=== PATIENT | male | born 1935 ===

== ENCOUNTER 2023-12-05 02:57 | Inpatient (IN) | payer MEDICARE ==
[2023-12-05] VITALS (24 sets, daily range): BP systolic 114–158; BP diastolic 59–93
[~2023-12-05] VITALS: Ht 172.7 cm; Wt 85.1 kg
[2023-12-05] MEDS ORDERED: CefTRIAXone Sodium 1,000 MG in NS 50 ML IV ONE (03:35)
[2023-12-05] MEDS ORDERED: Azithromycin 500 MG in NS 250 ML IV ONE (03:35)
[2023-12-05 03:39] LABS: D-Dimer, Quantitative 0.6 mg/L FEU (0.00-0.52)
[2023-12-05 03:42] LABS: Albumin, Blood 3.5 g/dL (3.4-5.0); Bilirubin, Total 0.4 mg/dL (0.1-1.0); Bun/Creatinine Ratio 18.6 (12.0-20.0); Calcium, Blood 9.1 mg/dL (8.5-10.1); Creatinine, Blood 1.13 mg/dL (0.60-1.20); Globulin, Blood 3.5 g/dL (2.2-4.0); Potassium, Blood 4.2 mmol/L (3.5-5.5)
[2023-12-05 04:15] LABS: BASOPHILS ABSOLUTE AUTO 0.02 K/mm3 (0.00-0.23); BASOPHILS PERCENT AUTO 0 % (0-2); EOSINOPHILS ABSOLUTE AUTO 0.06 K/mm3 (0.00-0.68); EOSINOPHILS PERCENT AUTO 1 % (0-6); Hematocrit 23.1 % (37.0-53.0); Hemoglobin 6.6 g/dL (13.5-17.5); IMMATURE GRAN ABSOLUTE AUTO 0.04 K/mm3 (0.00-0.10); IMMATURE GRAN PERCENT AUTO 1 % (0-1); LYMPHOCYTES ABSOLUTE AUTO 0.75 K/mm3 (0.84-5.20); LYMPHOCYTES PERCENT AUTO 9 % (21-46); MONOCYTES ABSOLUTE AUTO 0.58 K/mm3 (0.16-1.47); MONOCYTES PERCENT AUTO 7 % (4-13); Mean Corpuscular HGB 20.1 pg (26.0-34.0); Mean Corpuscular HGB Conc 28.6 g/dL (31.5-36.5); Mean Corpuscular Volume 70 fL (80-100); NEUTROPHILS ABSOLUTE AUTO 6.84 K/mm3 (1.96-9.15); NEUTROPHILS PERCENT AUTO 83 % (41-73); Platelet Count 131 K/mm3 (150-400); RDW Standard Deviation 43.5 fL (35.1-46.3); Red Blood Cell Count 3.28 M/mm3 (4.30-5.90); White Blood Cell Count 8.29 K/mm3 (4.00-11.30)
[2023-12-05] MEDS ORDERED: Pantoprazole Sodium 40 MG Injection IV ONE (05:45)
[2023-12-05] MEDS ORDERED: Nitroglycerin 0.4 MG SUBL SL PRN (05:45)
[2023-12-05] MEDS ORDERED: Ondansetron 4 MG TAB PO PRN (05:45)
[2023-12-05] MEDS ORDERED: Acetaminophen 325 MG TABLET PO PRN (05:45)
[2023-12-05] MEDS ORDERED: NS 1,000 ML IV SCH ×2 (05:50→19:00)
[2023-12-05] MEDS ORDERED: Pantoprazole Sodium 40 MG Injection IV SCH (06:00)
[2023-12-05] MEDS ORDERED: Atorvastatin 40 MG Tab PO SCH (09:00)
[2023-12-05] MEDS ORDERED: CLOP75 PO (10:33)
[2023-12-05] MEDS ORDERED: ATOR40TA PO (10:33)
[2023-12-05] MEDS ORDERED: Prinivil10 MG PO (10:34)
[2023-12-05] MEDS ORDERED: OMEP20ER PO (10:34)
[2023-12-05] MEDS ORDERED: MIRT15 PO (10:34)
[2023-12-05] MEDS ORDERED: ASPI81CH PO (10:35)
[2023-12-05] MEDS ORDERED: PARO10 PO (10:35)
[2023-12-05 12:38] LABS: Hematocrit 27.9 % (37.0-53.0); Hemoglobin 8.4 g/dL (13.5-17.5); IMMATURE RETIC FRACTION 37.2 % (2.3-16.0); RETIC HGB EQUIVALENT 18.2 pg (28.20-36.60); RETICULOCYTE ABSOLUTE 0.0498 M/mm3 (0.0200-0.1100); RETICULOCYTE COUNT PERCENT 1.32 % (0.50-2.50)
[2023-12-05 13:08] LABS: BASOPHILS ABSOLUTE AUTO 0.02 K/mm3 (0.00-0.23); BASOPHILS PERCENT AUTO 0 % (0-2); EOSINOPHILS ABSOLUTE AUTO 0.05 K/mm3 (0.00-0.68); EOSINOPHILS PERCENT AUTO 1 % (0-6); IMMATURE GRAN ABSOLUTE AUTO 0.05 K/mm3 (0.00-0.10); IMMATURE GRAN PERCENT AUTO 1 % (0-1); LYMPHOCYTES ABSOLUTE AUTO 1.21 K/mm3 (0.84-5.20); LYMPHOCYTES PERCENT AUTO 14 % (21-46); MONOCYTES ABSOLUTE AUTO 0.72 K/mm3 (0.16-1.47); MONOCYTES PERCENT AUTO 9 % (4-13); Mean Corpuscular HGB 22.1 pg (26.0-34.0); Mean Corpuscular Volume 74 fL (80-100); NEUTROPHILS ABSOLUTE AUTO 6.45 K/mm3 (1.96-9.15); NEUTROPHILS PERCENT AUTO 76 % (41-73); NRBC ABSOLUTE 0.02 K/mm3 (0.00-0.02); NRBC Auto 0.2 /100 WBC (0.0-0.2); Platelet Count 127 K/mm3 (150-400); RDW Coefficient Variation 19.7 % (11.7-14.2); RDW Standard Deviation 51.8 fL (35.1-46.3)
[2023-12-05] MEDS ORDERED: LORazepam 2 MG/ML 1ML Injection IV PRN (13:55)
--- NOTE | 2023-12-05 14:58 | NUR ---
1300 UPDATE AT 1300 RICKY RN NOTIFIED THIS RN THAT PT WAS ATTEMPTING TO LEAVE "AMA." THIS RN HEADED TO PT'S ROOM TO FIND PT WALKING IN THE HALLWAY WITH HIS CANE. PT DRESSED IN HIS JEANS AND WHITE TANK TOP. THS RN ATTEMPTED TO ASK PT IF HE NEEDED HELP, PT BEGAN SPEAKING IN K[place] AND POINTING AT THE EXIT SIGNS ON THE ROOF. PTS SON PRESENT AT PT'S DOOR OF HIS ROOM. THIS RN ASKED PT'S SON WHAT THE PT WAS SAYING. PTS SON RESPONDED "HE SAID HE JUST HAS TO GO." THIS RN ASKED SON IF WE COULD GO TO PTS ROOM TO DISCUSS WHAT WAS GOING ON, SON STATED "HE WILL NOT LISTEN TO ME. HE TOLD ME HE NEEDS TO GO." THIS RN ASKED SON IF WE COULD GET A MEDICAL EDUCATOR PHONE IN ORDER TO DISCUSS WITH PT. SON ASKED PT, SON THEN STATED NO. HE DOES NOT WANT THAT." RICKY RN ASKED TO CONTACT DOCTOR OF PT WANTING TO LEAVE AMA. THIS RN ASKED SON TO LET PT KNOW THAT THE DOCTOR WAS BEING CALLED. RICKY RN NOTIFIED THIS RN THAT THE DOCTORS ARE ATTEMPTING TO GET THE PT TRANSFERED TO [facility] FROM HERE. THIS RN INFORMED PT'S SON AND SON UPDATED PT. PT CONTINUED TO GERMNA HIS SPEECH IN [place] AND WALKED THROUGH THE DOUBLE DOORS INTO SURGICAL UNIT. [place] EGAN STOPPED PT AND ATTEMPTED TO REDIRECT PT TO HIS ROOM. PT WITHREW HIS ARMS FROM [facility]. THIS RN INSTRUCTED JIGNESH TO NOT ATTEMPT TOOP PT IF HE WISHED TO WALK AWAY. RICKY RN NOTIFIED THIS RN THAT DOCTOR WAS COMING TO DISCUSS SITUATION WITH THE PT. THIS RN NOTIFIED PTS SON AND SON NOTIFIED PT. DR ORLANDO WILLSON ARRIVED AND BEGAN SPEAKING K[place] TP PT TO ASSESS WHAT WAS GOING ON. PT CONTINUED TO EXPRESS THAT HE "NEEDED TO LEAVE." DR WILLSON NOTED THAT PT HAD SOME ANXIETY RELATED TO PT SEEING SOME FRIENDS FROM CARDIAC ISSUES AND THAT THE THOUGHT WAS MAKING PT ANXIOUS. PTS OTHER SON PROVIDED HOME MEDICATIONS AND PT TOOK. DR WILLSON ASKED WHAT MEDS WERE IN THE CUP. PT'S PROVIDED HOME MED LIST VIA HIS PHONE. DR WILLSON ASKED IF ONE OF THE MEDS WERE PLAVIX, SON RESPONDED "YES." AFTER TAKING MEDICATION, PT APPEARED TO HAVE CALMED DOWN ALMOST INSTANTLY. PT INSTRUCTED TO SIT IN WHEELCHAIR PROVIDED BY CAR[place]INA EGAN. DR WILLSON DISCUSSED MEDICATIONS WITH PT AND PT'S SONS. PT REDIRECTED TO HIS ROOM BY DR WILLSON. DR WILLSON CONTACTED PTS DAUGHTER AND UPDATED HER. PT CURRENTLY AGREEABLE TO STAY FOR TRANSFER TO [facility]. PT AND SONS EDUCATED ON MEDICATIONS AND WHY BLOOD THINNERS WERE BEING HELD. PT CONTINUES TO BE COOPERATIVE AT THIS TIME.
[2023-12-05 17:01] LABS: Hematocrit 25.3 % (37.0-53.0); Hemoglobin 7.6 g/dL (13.5-17.5)
--- NOTE | 2023-12-05 18:38 | NUR ---
SHIFT SUMMARY PT IS A/O WITH MINOR DEMENTIA. PT GOT AGGRIVATED AND SCARED THIS AFTERNOON AND TRIED TO LEAVE AMA. AFTER TALKING WITH PT AND FAMILY, PT DECIDED TO STAY AND [place] [facility] [place]. PT HEMOGLOBIN MUST BE ABOVE 10. HEMOGLOBIN TRENDED FROM 8.4 TO 7.6 @ 1633. PT RECEIVED 2 UNITS OF BLOOD AND HAS 2 MORE UNITS ORDERED. PT'S HR IS SR IN THE 70-80'S. BP'S STABLE. NO COMPLAINTS OF CP OR CHEST PRESSURE AT THIS TIME. PT IS ON RA AND SATING IN THE LOW TO MID 90'S. NO COMPLAINTS OF SOB. PT HAD A BM TODAY THAT PRESENTED WITH BLOOD. PT STATES NO TROUBLE URINATING. PT HAS BILATERAL LOWER LEG DISCOLORATION AND FLAKY SKIN. LEFT LEG WORSE THAN RIGHT. RIGT PEDAL PULSE IS STRONGER THAN LEFT. CTA WAS COMPLETED. PT IS IN BED SLEEPING WITH FAMILY PRESENT AND CALL LIGHT IN REACH.
[2023-12-05] MEDS ORDERED: NS 1,000 ML IV ONE (18:46)
--- NOTE | 2023-12-05 19:45 | NUR ---
THIS RN REVIEWED STUDENT RN NOTES AND CHARTING.
[2023-12-06 22:46] LABS: HAPTOGLOBIN 156 mg/dL (30-200)
== END 2023-12-05 21:55 | disposition short-term general hospital (02) | DRG 811 ==
LOC: ER 02:57 → PCU 05:41
PROVIDERS: Emergency Medicine; Family Medicine; ADMIT Student in an Organized Health Care Education/Training Program
PROC: 30233N1 Transfusion of Nonautologous Red Blood Cells into Peripheral Vein, Percutaneous Approach (ICD-10-PCS; principal; 2023-12-05)
DX: D50.0 Iron deficiency anemia secondary to blood loss (chronic) (principal); I21.4 Non-ST elevation (NSTEMI) myocardial infarction; J90 Pleural effusion, not elsewhere classified; K92.1 Melena; R01.1 Cardiac murmur, unspecified; I25.10 Atherosclerotic heart disease of native coronary artery without angina pectoris; F03.90 Unspecified dementia, unspecified severity, without behavioral disturbance, psychotic disturbance, mood disturbance, and anxiety; K21.9 Gastro-esophageal reflux disease without esophagitis; I10 Essential (primary) hypertension; M19.90 Unspecified osteoarthritis, unspecified site; I35.0 Nonrheumatic aortic (valve) stenosis; G89.29 Other chronic pain; F41.1 Generalized anxiety disorder; Z86.16 Personal history of COVID-19; Z98.890 Other specified postprocedural states; Z95.5 Presence of coronary angioplasty implant and graft; Z87.19 Personal history of other diseases of the digestive system; Z87.891 Personal history of nicotine dependence; Z79.82 Long term (current) use of aspirin; Z79.899 Other long term (current) drug therapy
CPT/HCPCS: 36415; 36430; 71045; 74174; 80053; 82947; 83010; 83605; 83690; 83880; 84145; 84484; 85014; 85018; 85025; 85045; 85060; 85379; 85730; 86850; 86900; 86901; 86923; 93005; 93010; 96365-59; 96375-59; 99285-25; A9270; C8929; C9113; J0456; J0696; J2060; J7030; J7050; P9016; Q9957; Q9967